=== PATIENT | male | born 1950 | race Caucasian/White ===

== ENCOUNTER 2017-02-12 01:43 | Emergency (ER) | payer MEDICARE, BC ==
[~2017-02-12] VITALS: Ht 175.3 cm; Wt 161.1 kg
[2017-02-12 01:51] VITALS: BP 146/85; PULSE 85; RESP 18; TEMP 98; O2SAT 96
--- NOTE | 2017-02-12 02:23 | PD ---
HPI Chief Complaint: Complaint Time Seen by Provider: 02:59 Travel History International Travel<30 days: No Contact w/Intl Traveler<30days: No Traveled to known affect area: No History of Present Illness HPI 66-year-old male presents to the emergency department for complaint of urinary frequency urgency decreased urine output and hematuria. Patient [place] and has been here for one week and is returning home on Wednesday. Patient has history of atrial fibrillation and is prescribed warfarin. Patient reports he has his INR checked every 6 weeks and it has been stable. Patient denies any dietary indiscretion. Patient denies fever chills. Patient's had no chest pain palpitations sweats shortness of breath near syncope syncope or abdominal pain. Patient has prior history of kidney stones with hematuria but denies any sudden onset flank pain. Patient rates suprapubic discomfort as 5/10 intensity. Patient is admitted, or injury. Patient's had no discharge and no blood at the urethral meatus. Patient is unable to identify exacerbating or alleviating factors. PFSH Past Medical History Narrative Medical Arthritis atrial fibrillation prostate cancer with seeding and radiation therapy hypertension dyslipidemia COPD diabetes diminished hearing kidney stones pneumonia sleep apnea; gastric bypass herniorrhaphy orthopedic surgery; no tobacco use; nursing notes reviewed Arthritis: Yes Heart Rhythm Problems: Yes (IRREGULAR) Cancer: Yes (PROSTATE; RADIATION SEEDS) High Cholesterol: Yes COPD: Yes (LOWER LUNG CAPACITY) Diabetes: Yes (TYPE II) Patient Takes Glucophage: Yes (02/11/17 2200) Diminished Hearing: Yes (WIYOT) Genitourinary: Yes (KIDNEY STONES) Pneumonia: Yes Radiation Therapy: Yes (RADIATION SEEDS-PROSTATE CA) Sleep Apnea: Yes Tetanus Vaccination: Unknown Influenza Vaccination: Yes Past Surgical History Abdominal Surgery: Yes (BARIATRIC, GASTRIC BYPASS) Joint Replacement: Yes (KNEES) Other Surgery: Yes (HERNIA) Social History Alcohol Use: Yes (OCC) Tobacco Use: No Substance Use: No Allergies-Medications (Allergen,Severity, Reaction): Coded Allergies: No Known Allergies (Unverified , 02/12/17) Reported Meds & Prescriptions Reported Meds & Active Scripts Active Pyridium (Phenazopyridine HCl) 100 Mg Tab 100 Mg PO Q8H PRN Cipro (Ciprofloxacin HCl) 500 Mg Tab 500 Mg PO BID 7 Days Reported Doxazosin (Doxazosin Mesylate) 2 Mg Tab 2 Mg PO HS Ferrous Sulfate 325 Mg Tab 325 Mg PO TID Vitamin D3 (Cholecalciferol) 1,000 Unit Chew 1,000 Units CHEW DAILY Claritin (Loratadine) 10 Mg Cap 10 Mg PO DAILY Methocarbamol 750 Mg Tab 750 Mg PO Q4H Calcium (Calcium Carbonate) 600 Mg Tab Units PO BID Potassium 75 Mg Tab 10 PO QID Lisinopril 40 Mg Tab 40 Mg PO DAILY Omeprazole 20 Mg Cap 20 Cap PO DAILY Metformin (Metformin HCl) 1,000 Mg Tab 1,000 Mg PO BIDPC With meals Glipizide 10 Mg Tab 10 Mg PO BIDAC Take 30 minutes before a meal Amlodipine (Amlodipine Besylate) 10 Mg Tab 10 Mg PO DAILY Carvedilol 25 Mg Tab 25 Mg PO BID Atorvastatin (Atorvastatin Calcium) 40 Mg Tab 40 Mg PO HS Warfarin 10 Mg Tab 10 Mg PO DAILY Review of Systems Except as stated in HPI: all other systems reviewed are Neg General / Constitutional: No: Fever, Chills HENT: No: Congestion Cardiovascular: No: Chest Pain or Discomfort Respiratory: No: Shortness of Breath Gastrointestinal: No: Nausea, Vomiting, Abdominal Pain Genitourinary: Positive: Urgency, Frequency, Dysuria, Hematuria, Decreased Urinary Output, No: Pelvic Pain, Flank Pain Musculoskeletal: No: Myalgias, Arthralgias Skin: No Rash Neurologic: No: Weakness Psychiatric: No: Anxiety Hematologic/Lymphatic: No: Easy Bruising Physical Exam Narrative GENERAL: Well-developed well-nourished male no acute distress no respiratory distress SKIN: Warm and dry. HEAD: Normocephalic. EYES: No scleral icterus. No injection or drainage. NECK: Supple, trachea midline. No JVD or lymphadenopathy. CARDIOVASCULAR: Regular rate and rhythm without murmurs, gallops, or rubs. RESPIRATORY: Breath sounds equal bilaterally. No accessory muscle use. GASTROINTESTINAL: Abdomen soft, non-tender except for mild suprapubic tenderness to direct palpation without guarding or rebound, nondistended. MUSCULOSKELETAL: No cyanosis, bilateral lower leg edema consistent with history of lymphedema. BACK: Nontender without obvious deformity. No CVA tenderness. Data Data Last Documented VS Vital Signs Date Time Temp Pulse Resp B/P Pulse Ox O2 Delivery O2 Flow Rate FiO2 02/12/17 03:20 80 16 141/80 99 Room Air 02/12/17 01:51 98.0 Orders Urinalysis - C+S If Indicated (02/12/17 02:17) Prothrombin Time / Inr (Pt) (02/12/17 02:17) Urine Culture (02/12/17 02:25) Ciprofloxacin (Cipro) (02/12/17 03:15) Phenazopyridine (Pyridium) (02/12/17 03:15) Labs Laboratory Tests Test 02/12/17 02:25 Prothrombin Time 23.8 SEC Prothromb Time International 2.1 RATIO Ratio Urine Color RED Urine Turbidity CLOUDY Urine pH 5.5 Urine Specific [employer] 1.034 Urine Protein 300 OR GREATER mg/dL Urine Glucose (UA) NEG mg/dL Urine Ketones 15 mg/dL Urine Occult Blood LARGE Urine Nitrite POS Urine Bilirubin NEG Urine Leukocyte Esterase MOD Urine RBC 100-200 /hpf Urine WBC 20-24 /hpf Urine Squamous Epithelial 0-5 /hpf Cells Urine Bacteria FEW /hpf Microscopic Urinalysis Comment CULTURE INDICATED MDM Medical Decision Making Medical Screen Exam Complete: Yes Emergency Medical Condition: Yes Medical Record Reviewed: Yes Interpretation(s) INR: 2.1, therapeutic range UA: Positive nitrites positive white blood cells clumped white blood cells and bacteria culture indicated Differential Diagnosis Dysuria, UTI, hemorrhagic cystitis, Coumadin coagulopathy, anemia Narrative Course Patient identified to have abnormal urinalysis with therapeutic INR patient administered first dose of oral antibiotic in the emergency department along with Pyridium Patient tolerated antibiotic well and is stable for outpatient management encouraged follow closely with primary care provider upon returning home on Wednesday; patient encouraged to return to the emergency department for free concerns or change in condition. Patient is given recommendation to monitor temperature and take acetaminophen/Tylenol as needed for fever 100.4F or greater Diagnosis Primary Impression: UTI (urinary tract infection) Referrals: Primary Care Physician call for appointment Patient Instructions: General Instructions Additional Instructions: Increase fluid hydration Complete course of antibiotic as prescribed Follow-up with primary care provider call office to schedule appointment Return to the emergency department for any concerns or change in condition or worsening of condition Take acetaminophen/Tylenol as often as every 4 hours as needed for fever 100.4 F or greater or for minor discomfort Med/Other Pt SpecificInfo: Prescription(s) given Scripts Phenazopyridine (Pyridium)100 Mg [id number] Mg PO Q8H PRN (DYSURIA) #6 TAB Ref 0 Prov:Crissy Lisa MD 02/12/17 Ciprofloxacin (Cipro)500 Mg [id number] Mg PO BID 7 Days Ref 0 Prov:Crissy Lisa MD 02/12/17 Disposition: 01 DISCHARGE HOME Condition: Stable Crissy Lisa MD Feb 12, 2017 02:23
[2017-02-12] MEDS ORDERED: GLIP10TA6 PO (02:32)
[2017-02-12] MEDS ORDERED: OMEP20CA2 PO (02:32)
[2017-02-12] MEDS ORDERED: ATOR40TA16 PO (02:32)
[2017-02-12] MEDS ORDERED: LISI40TA PO (02:32)
[2017-02-12] MEDS ORDERED: CLAR10CA3 PO (02:32)
[2017-02-12] MEDS ORDERED: CHOL100025 CHEW (02:32)
[2017-02-12] MEDS ORDERED: CALC600T25 PO (02:32)
[2017-02-12] MEDS ORDERED: DOXA1TAB35 PO (02:32)
[2017-02-12] MEDS ORDERED: METF1000 PO (02:32)
[2017-02-12] MEDS ORDERED: METH750T PO (02:32)
[2017-02-12] MEDS ORDERED: FERR325T PO (02:32)
[2017-02-12] MEDS ORDERED: WARF-22 PO (02:32)
[2017-02-12] MEDS ORDERED: POTA75TA PO (02:32)
[2017-02-12] MEDS ORDERED: CARV25TA PO (02:32)
[2017-02-12] MEDS ORDERED: AMLO10TA2 PO (02:32)
[2017-02-12 02:40] LABS: BLOOD, URINE LARGE (NEG); GLUCOSE,URINE NEG (NEG); KETONE, URINE 15 mg/dL (NEG); PH, URINE 5.5 (5.0-8.5)
[2017-02-12 02:46] LABS: NITRITE,URINE POS (NEG); URINE COLOR RED (YELLW/STRAW)
[2017-02-12 02:47] LABS: BACTERIA, URINE FEW /hpf; RBC, URINE 100-200 /hpf (0-3); SQUAMOUS EPITHELIAL CELL URINE 0-5 /hpf (0-5)
[2017-02-12 02:48] LABS: COMMENT (UR) CULTURE INDICATED; CULTURE IF INDICATED CULTURE INDICATED
[2017-02-12 02:50] LABS: INTERNATIONAL NORMALIZED RATIO 2.1 RATIO; PROTHROMBIN TIME - PATIENT 23.8 SEC (9.8-11.6)
[2017-02-12] MEDS ORDERED: PHEN0.4T PO (03:03)
[2017-02-12] MEDS ORDERED: CIPR-9 PO (03:03)
[2017-02-12] MEDS ORDERED: CIPROFLOXACIN 500 MG TAB PO ONE (03:15)
[2017-02-12] MEDS ORDERED: PHENAZOPYRIDINE HCL 100 MG TAB PO ONE (03:15)
[2017-02-12 03:20] VITALS: BP 141/80; PULSE 80; RESP 16; O2SAT 99
== END 2017-02-12 03:24 | disposition home or self-care (01) ==
LOC: PHED 01:43
DX: N39.0 Urinary tract infection, site not specified (principal); I48.91 Unspecified atrial fibrillation; Z79.01 Long term (current) use of anticoagulants; Z79.4 Long term (current) use of insulin; Z85.46 Personal history of malignant neoplasm of prostate; J44.9 Chronic obstructive pulmonary disease, unspecified; I10 Essential (primary) hypertension; G47.30 Sleep apnea, unspecified; E11.9 Type 2 diabetes mellitus without complications
CPT/HCPCS: 81001; 85610; 87077; 87086; 87186; 99283